=== PATIENT | male | born 1990 | race Caucasian/White ===

== ENCOUNTER 2016-07-10 08:50 | Emergency (ER) | payer BC, OTHER ==
[~2016-07-10] VITALS: Ht 177.8 cm; Wt 127.0 kg
[~2016-07-10 08:50] MED LIST: HYDR-3129 PO
[2016-07-10 08:53] VITALS: BP 141/102; PULSE 84; RESP 20; TEMP 98.1; O2SAT 100
[2016-07-10] MEDS ORDERED: IBUP800T23 PO (09:04)
[2016-07-10] MEDS ORDERED: TETANUS/DIPHTHERIA TOXOID ADULT 0.5 ML VIAL IM ONE (09:30)
[2016-07-10] MEDS ORDERED: LIDOCAINE 1%/EPINEPHrine 1:100,000 SOLN 20 ML VIAL INFIL ONE (09:30)
[2016-07-10] MEDS ORDERED: BACT800T5 PO (09:56)
--- NOTE | 2016-07-10 09:56 | PD ---
HPI Chief Complaint: Skin Problem Time Seen by Provider: 09:20 Travel History International Travel<30 days: No Contact w/Intl Traveler<30days: No Traveled to known affect area: No History of Present Illness HPI 25-year-old male presents to the emergency room for evaluation of a painful, enlarging lump to his right anterior lower abdomen that started 3 days ago. Patient states it has been enlarging and becoming more painful since onset. He reports associated clear drainage. Denies fever, chills, nausea, vomiting. Unknown last tetanus. PFSH Past Medical History Cancer: No Cardiovascular Problems: No Diabetes: No Endocrine: No Genitourinary: No Hepatitis: No Hiatal Hernia: No Immune Disorder: No Musculoskeletal: Yes (RIGHT ARM FRACTURE) Neurologic: No Psychiatric: No Reproductive: No Respiratory: No Thyroid Disease: No Past Surgical History Abdominal Surgery: No AICD: No Body Medical Devices: 2 PLATES AND SCREWS RIGHT HAND Cardiac Surgery: No Ear Surgery: No Eye Surgery: No Genitourinary Surgery: No Joint Replacement: No Oral Surgery: No Pacemaker: No Thoracic Surgery: No Social History Tobacco Use: No Substance Use: No Allergies-Medications (Allergen,Severity, Reaction): Coded Allergies: Contrast Media (Verified Adverse Reaction, Severe, Nausea/Vomiting, 07/10/16 ) Reported Meds & Prescriptions Reported Meds & Active Scripts Active Bactrim DS (Sulfamethoxazole-Trimethoprim) 800-160 Mg Tab 1 Tab PO BID Reported Ibuprofen 800 Mg Tab 800 Mg PO Q6HR PRN Review of Systems Except as stated in HPI: all other systems reviewed are Neg Physical Exam Narrative GENERAL: Well-nourished, obese male in no acute distress. Afebrile. Ambulatory. SKIN: Warm and dry. There is an indurated area in the right lower abdomen, at the waistline which measures about 3 cm in diameter. It is fluctuant but there is no pointing or drainage. There is a zone of inflammation around it but no lymphangitis. HEAD: Normocephalic. EYES: No scleral icterus. No injection or drainage. NECK: Supple, trachea midline. No JVD or lymphadenopathy. Data Data Last Documented VS Vital Signs Date Time Temp Pulse Resp B/P Pulse Ox O2 Delivery O2 Flow Rate FiO2 07/10/16 08:53 98.1 84 20 141/102 100 Room Air Orders Tetanus/Diphtheria Tox Adult (Tetanus/Di (07/10/16 09:30) Lidocai-Epi 1%-1:100,000 Inj (Xylocaine- (07/10/16 09:30) Wound Culture And Gram Stain (07/10/16 09:59) MDM Medical Decision Making Medical Screen Exam Complete: Yes Emergency Medical Condition: Yes Medical Record Reviewed: Yes Differential Diagnosis Abscess versus folliculitis versus cellulitis Narrative Course 25-year-old male presents to the emergency room for evaluation of an abscess to his right lower abdomen/waistline that started 3 days ago. No systemic signs of infection. He is afebrile and well-appearing. There is a 3 cm area of induration without significant surrounding inflammation and without lymphangitis. It was drained, see procedure note for details. Patient was discharged with Bactrim and told to follow up with the primary care physician or return for worsening symptoms. He understands and agrees to plan. Procedures Procedure Narrative INCISION AND DRAINAGE OF ABSCESS: The area was prepped and was sterilely draped. A subcutaneous wheal of 1% lidocaine with epinephrine with a total number 5 mL was used to anesthetize the area properly. A number 11 scalpel was used to make a 1 cm incision across the area of the abscess. The abscess was drained, complex loculations were broken down, and irrigated with normal saline. Cultures were obtained. Sterile dressing applied. Diagnosis Primary Impression: Cutaneous abscess of abdominal wall Referrals: Primary Care Physician Patient Instructions: Abscess (ED), General Instructions Additional Instructions: Rest and drink plenty of fluids. Take Bactrim as directed, until gone. Follow up with a primary care physician. Return to emergency room for worsening symptoms, as discussed. Med/Other Pt SpecificInfo: Prescription(s) given Scripts Sulfamethoxazole-Trimethoprim (Bactrim DS)800-160 Mg Tab1 Tab PO BID #20 TAB Ref 0 Prov:Lou Mckeon MD 07/10/16 Disposition: 01 DISCHARGE HOME Condition: Stable Charleen Parisi Jul 10, 2016 09:56
== END 2016-07-10 10:12 | disposition home or self-care (01) ==
LOC: NEPB 08:50
DX: L02.211 Cutaneous abscess of abdominal wall (principal); B95.61 Methicillin susceptible Staphylococcus aureus infection as the cause of diseases classified elsewhere; Z23 Encounter for immunization
CPT/HCPCS: 10060; 86403; 87070; 87186; 90471; 90714

== ENCOUNTER 2017-02-14 16:55 | Emergency (ER) | payer BC ==
[~2017-02-14] VITALS: Ht 177.8 cm; Wt 125.0 kg
[~2017-02-14 16:55] MED LIST changes: +BACT800T5 PO; -HYDR-3129 PO; +IBUP800T23 PO
[2017-02-14 16:58] VITALS: BP 172/105; PULSE 85; RESP 17; TEMP 97.6; O2SAT 100
--- NOTE | 2017-02-14 17:26 | PD ---
Physical Exam Time Seen by Provider: 17:26 Narrative 26 y/o male with n/v for the past few hours. Vital signs reviewed. Seen at triage desk. Awaiting bed placement. Data Data Last Documented VS Vital Signs Date Time Temp Pulse Resp B/P Pulse Ox O2 Delivery O2 Flow Rate FiO2 02/14/17 16:58 97.6 85 17 172/105 100 MDM Medical Record Reviewed: Yes Supervised Visit with DORITA: No Tejas Velasco Feb 14, 2017 17:26
== END 2017-02-14 21:21 | disposition left against medical advice (07) ==
LOC: NED 16:55
DX: R11.2 Nausea with vomiting, unspecified (principal)
CPT/HCPCS: 99281